=== PATIENT | female | born 1955 | race Caucasian/White ===

== ENCOUNTER → 2017-07-27 | Outpatient (CLI) | payer OTHER ==
--- NOTE | 2017-07-27 09:18 | Diagnostic Imaging Report ---
PROCEDURE: US THYROID COMPARISON: None. INDICATIONS:Hyperthyroidism TECHNIQUE: Gordillo scale color Doppler ultrasound thyroid FINDINGS: Right lobe: 3.7 x 1.3 x 1.5 cm Left thyroid: 4.1 x 1.7 x 1.6 cm Isthmus thickness: 0.5 cm No discrete nodules. Thyroid is diffusely heterogeneous with mildly increased vascularity. CONCLUSION: Heterogeneous, hypervascular thyroid suggesting thyroiditis. No discrete nodularity. Dictated by: Darren Connor M.D. on 07/27/2017 at 9:19 Electronically approved by: Darren Connor M.D. on 07/27/2017 at 9:19
--- NOTE | 2017-07-27 20:59 | Diagnostic Imaging Report ---
Thyroid Scan with Single Uptake Reason for exam: 61-year-old female with thyrotoxicosis Radiopharmaceutical: I-123 Desirae 0.29 mCi Report: After oral administration of I-123 Desirae, the 6-hour thyroid uptake of iodine is 35% (normal 4-14%). Images of the thyroid was obtained in the anterior and anterior oblique projections. The thyroid lobes appear nearly symmetric ins size. There is heterogenous distribution of tracer activity throughout both lobes with a distinct hot nodule in the mid right lobe. The thyroid is in a normal anatomic location. A pyramidal lobe is not seen. There is no aberrant functioning thyroid tissue seen in the area scanned. Impression: Scan and uptake findings are compatible with hyperthyroidism/toxic multinodular goiter. Signed by: Dr. Thuy Estevez M.D. on 07/27/2017 8:55 PM
== END | disposition home or self-care (01) ==
LOC: US 08:34
PROVIDERS: ATTEND Internal Medicine
DX: E05.20 Thyrotoxicosis with toxic multinodular goiter without thyrotoxic crisis or storm (principal); E06.9 Thyroiditis, unspecified
CPT/HCPCS: 76536; 78014; A9516